=== PATIENT | male | born 1980 | race Caucasian/White ===

== ENCOUNTER → 2017-10-13 | Outpatient (CLI) | payer OTHER ==
[~2017-10-13] MED LIST: MELO15TA6 PO
--- NOTE | 2017-10-13 18:21 | PAIN ---
DATE OF SERVICE: 10/13/2017 CHIEF COMPLAINT: Left-sided mid back pain. HISTORY OF PRESENT ILLNESS: This is a 37-year-old male who presents with history of pain, left side mid to low back with radiation. Pain is nagging, constant in this area just at the inferior aspect of his thoracic spine, essentially with radiation into the left lateral aspect of the inferior rib cage to the edge of the ribs and sometimes in the mid axillary line on the left. The patient reports there is not any specific injury or action he is aware of, but activity over many years. The patient is active in the [employer] and has had multiple physical injuries and strains with his mid and low and upper back over the years. The patient reports it is gradually increasing over the last 6 months or so, becoming more noticeable. It is nagging, worse with sitting, better with activity, standing, walking, running is actually decreasing the pain while he is doing that when he sits though after a few minutes, the pain returns fairly significantly. The patient reports sitting in an airplane seat or upright in a car seat is significantly exacerbating the pain, awakens him occasionally from sleep at night, but not every night. Does not affect his bowel or bladder control or his ability to walk and he feels better with walking, standing, changing positions. The patient has had physical therapy in the past, chiropractic treatment, exercise as well as trigger point injections in the muscles of the back, which seems to help, as does the chiropractic treatments as well. The patient reports his disability rating from the pain from 0-10, 10 being the worst; is a zero with family home responsibilities, social activity, sexual behavior; 1 with recreation, occupation and self-care and 2 with life support activities, especially sleeping. The patient had previous films which are unavailable at time of this dictation as they were done in [facility] and those reports are not available and they were several months ago when he was stationed there as well. PAST MEDICAL HISTORY: Significant for only a history of a broken left leg, which required open reduction and internal fixation when he was about 15 years ago. Otherwise, the patient has been in very good health. No significant major medical problems or other conditions. CURRENT MEDICATIONS: List includes only [id number] Advil or Motrin or Tylenol. ALLERGIES: The patient has no known drug allergies. FAMILY HISTORY: Significant for no major medical problems or conditions that he is aware of. SOCIAL HISTORY: The patient does not smoke, drinks about 5 alcoholic drinks in a week on average, is , lives with his spouse and is active residing currently in [place], [place]. REVIEW OF SYSTEMS: The patient's review of systems is positive for those items mentioned in history of present illness. All systems reviewed and otherwise negative. It is complete, full and well documented on the patient's chart. PHYSICAL EXAMINATION: VITAL SIGNS: The patient's blood pressure 136/80, pulse is 59, respirations 18, temperature is 97.7 degrees Fahrenheit, height is 73 inches, weighs 200 pounds. GENERAL: The patient is awake, alert, oriented, appropriate, very pleasant demeanor. HEENT: Head shows normocephalic, atraumatic. Extraocular movements are intact, symmetrical. Oral cavity: Mucous membranes are moist and pink. Dentition is intact. NECK: Shows anterior throat supple without palpable lymphadenopathy noted. Swallow reflex is symmetrical. CHEST: Normal on inspection. Breath sounds are clear to auscultation bilaterally. HEART: Shows S1, S2 clear. No murmurs auscultated. ABDOMEN: Soft, nontender, nondistended. No palpable organomegaly is noted. No rebound or guarding demonstrated. BACK: Shows spine grossly in midline, normal-appearing cervical lordotic curvature, thoracic kyphotic curvature, and lumbar lordotic curvature. No previous bruises, lesions, rashes or scars are noted. Thoracic and lumbar distribution of paraspinous muscles, look on appearance are symmetrical without evidence of atrophy, hypertrophy with rotational motion shows increased pain with extension in the left low thoracic distribution with some minor radiation to the left lateral and inferior aspect of the costal margin. No pain on the right side. Forward flexion relieves this pain in neutral position with rotating right and left. He has increased pain with left rotation past about 10 degrees and no pain with right lateral rotation past 10 degrees. Palpation shows normal musculature. No tenderness with palpation and no reproduction of pain or radiation of pain, no trigger points, no asymmetry, no tenderness over the spinous processes themselves in the mid or low thoracic spine as well as the lumbar spine with nontender lumbar paraspinous musculature shows which is symmetrical also. The patient's lower extremities show deep tendon reflexes 2+ in the patellar and tendo calcaneus tendons. Motor exam is strong with 5/5 dorsiflexion, extension, quadriceps and hamstring flexion are equal and symmetrical as well. Peripheral pulses are 2+ posterior tibial and dorsalis pedis pulses. No peripheral edema is noted. No clubbing or cyanosis. The patient is able to stand, stand on his toes without difficulty or loss of balance, walks with a normal appearing gait, does not appear to favor the right or left lower extremity. 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 PLAN: Options were discussed with the patient including conservative medical managements, continued physical therapy, and interventional techniques. He likes to pursue interventional techniques. We discussed a left T11-T12 facet medial branch blocks using description as well as anatomical models to describe the procedure. The patient is interested in pursuing this. We will wait for preauthorization and have him return in approximately 2 weeks and we will plan on the left T11-T12 facet medial branch blocks at that time. SHANI PHAN MD DR: KAI/theodore JOB#: [id number] / [id number]
== END | disposition home or self-care (01) ==
LOC: PNCL 13:25
PROVIDERS: ATTEND Anesthesiology
DX: M51.34 Other intervertebral disc degeneration, thoracic region (principal); M47.894 Other spondylosis, thoracic region
CPT/HCPCS: 99214

== ENCOUNTER → 2017-11-09 | Outpatient (CLI) | payer OTHER ==
[~2017-11-09] MED LIST changes: +BUPIVACAINE MPF 0.25% 10 ML VIAL. ONE; +IOHEXOL 180 MG/ML 10 ML VIAL. ONE; +MULT1TAB52 PO; +methylPREDNISolone ACETATE 40 MG/ML VIAL. ONE; +methylPREDNISolone ACETATE 80 MG/ML VIAL. ONE
--- NOTE | 2017-11-09 09:08 | PAIN ---
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 HISTORY OF PRESENT ILLNESS: The patient is a 37-year-old male who returns for followup status post initial evaluation and preauthorization for left-sided thoracic medial branch facet block. The patient has obtained this now with his insurance provider, would like to proceed. He still has significant pain in the left low back side, radiating laterally in the inferior aspect of the ribcage essentially. The patient reports radiating constant on and off in intensity, but always present, aching, dull, tight, alternating as well. The patient reports pain of 4 on a scale of 10 at its worst, 3 on average, 1 at its least and is a 3 today. The patient reports no new motor or sensory deficits, still awakening him from sleep at night and worse with some rotation, worse with sitting and lying down and waking him from sleep, but he still sleeps about 7 hours a night without waking up. The patient reports it is better with walking, standing, running, changing positions, worse with extension of the spine and left lateral rotation. The patient reports no new motor or sensory deficits. No new bowel or bladder incontinence or other complaints. PHYSICAL EXAMINATION: VITAL SIGNS: Blood pressure 124/75, pulse 70, respirations 16, temperature is 97.7 degrees Fahrenheit, height is 6 feet 1 inch, weight is 209 pounds. GENERAL: The patient is awake, alert, oriented, appropriate, very pleasant demeanor. HEENT: Shows normocephalic, atraumatic. Extraocular movements are intact and symmetrical. Oral cavity, mucous membranes moist and pink. Dentition is intact. NECK: Shows anterior throat supple without palpable lymphadenopathy noted. Swallow reflexes symmetrical. CHEST: Normal in inspection. Breath sounds are clear to auscultation bilaterally. HEART: Tones S1, S2 clear. No murmurs auscultated. ABDOMEN: Soft, nontender, nondistended. No palpable organomegaly. No rebound or guarding demonstrated. BACK: Shows spine in grossly midline, normal-appearing thoracic kyphosis, lumbar lordotic curvature. With palpation, the inferior aspect of the thoracic paraspinous distribution on the left is moderately tender only with deep palpation. Right side is nontender. Musculature is symmetrical with no evidence of atrophy or hypertrophy. No radiation. No trigger points. The patient has good rotation of motion with some increased pain in the left lower thoracic region with extension only, but not with forward flexion or lateral rotation. EXTREMITIES: The patient's lower extremities show deep tendon reflexes 2+ patellar and tendocalcaneus tendon. Motor exam is strong with 5/5 dorsiflexion, extension, quadriceps, hamstring flexion equal. No peripheral edema is noted. Peripheral pulses are 2+ bilaterally. Options were discussed with the patient, and the patient's old chart was reviewed. His current medication regimen updated. His current review of systems updated today as well. We will proceed with left-sided T10, T11 and T12 medial branch facet blocks with fluoroscopic guidance. Risks were again discussed including, but not limited to bleeding, infection, possibility of epidural hematoma and subsequent neurologic compromise, dural puncture, headache, spinal cord and/or nerve damage, side effects of steroid medication and pneumothorax as well as poor results regarding pain control. The patient understands and wished to proceed. The patient will return to clinic in approximately 2 weeks for followup. He was counseled on return appointment and activity level and side effects to be aware of. DIAGNOSES: Thoracic spondylosis with thoracic degenerative disk disease. PROCEDURE: Left T10, T11 and T12 medial branch facet blocks using fluoroscopic guidance under sterile prep and drape using local anesthetic. MEDICATIONS INJECTED: A total of 120 mg Depo-Medrol, plus total of 3 mL of 0.25% bupivacaine after negative aspiration at each level. CONDITION AT DISCHARGE: Stable. The patient tolerated procedure well and no complications. SHANI PHAN MD DR: KAI/theodore JOB#: [id number] / [id number]
== END ==
LOC: PNCL 07:53
PROVIDERS: ATTEND Anesthesiology
DX: M47.814 Spondylosis without myelopathy or radiculopathy, thoracic region (principal); M51.34 Other intervertebral disc degeneration, thoracic region
CPT/HCPCS: 64490; 64491; 64492; J1030; J1040; J3490

== ENCOUNTER → 2018-04-30 | Outpatient (CLI) | payer OTHER | END | disposition home or self-care (01) | LOC: PNCL 08:54 | DX: M51.34 Other intervertebral disc degeneration, thoracic region (principal); M47.894 Other spondylosis, thoracic region | CPT/HCPCS: 99212 ==